=== PATIENT | male | born 1990 | race Two or more races ===

== ENCOUNTER 2017-04-05 10:40 | Emergency (ER) | payer OTHER ==
--- NOTE | ~2017-04-05 | CR181 ---
[facility] A Service of [facility] & [facility] RADIOLOGY TEXT RESULTS PATIENT: ALMA KHAN LOCATION: [facility] : 86 UNIT #: [id number] AGE: [address]: Karla Caceres SEX: M ORDER DR: [id number] [facility] [address] [place], [place] [address] [id number] MR#: [id number] Acc #: [id number] NAME: ALMA KHAN : 1990 SEX: M STUDY DATE/TIME: 04/05/2017 10:09 UNIT: [facility] ROOM: STUDY DESCRIPTION: CR Lumbar Spine 2 or 3 Views Attending Physician: Karla Caceres P.A.-C. Ordering Physician: Karla Caceres P.A.-C. Primary Care Physician: No Primary Care Physician MEDICAL IMAGING REPORT This report is preliminary unless electronic signature is present EXAM Lumbar spine series, 04/05/2017, 1009 hours. CLINICAL HISTORY Low back pain today. No known injury. Patient states back just started hurting at work today. COMPARISON None FINDINGS AP and lateral views of the lumbar spine and a coned lateral view of the lumbosacral junction were performed. There are 5 [id number] lumbar type vertebrae which are normally aligned. Vertebral body and disc heights are normal. There is no fracture. IMPRESSION Negative lumbar spine series. Dictated by... Brittny Mckay M.D. THIS IS AN ELECTRONICALLY VERIFIED REPORT Brittny Mckay M.D. at 04/05/2017 2:29 PM ROLANDO/sarah TD: 04/05/2017 12:59 JOB #: [id number] MEDICAL IMAGING REPORT Page 1 of 1 COPY
== END 2017-04-05 11:02 | disposition home or self-care (01) ==
LOC: CFTX 10:40
DX: S33.5XXA Sprain of ligaments of lumbar spine, initial encounter (principal); X58.XXXA Exposure to other specified factors, initial encounter; Y92.69 Other specified industrial and construction area as the place of occurrence of the external cause
CPT/HCPCS: 72100; 99283